=== PATIENT | female | born 1995 | race Two or more races ===

== ENCOUNTER 2025-07-20 02:42 | Emergency (ER) | payer OTHER ==
[~2025-07-20] VITALS: Ht 162.6 cm; Wt 52.2 kg
[2025-07-20 03:38] LABS: PREGNANCY TEST URINE QUAL NEGATIVE (NEGATIVE)
[2025-07-20] MEDS ORDERED: IBUP-1490 PO (04:19)
[2025-07-20] MEDS ORDERED: ACET-73 PO (04:19)
[2025-07-20 04:27] VITALS: BP 124/93; TEMP 97.1; O2SAT 100
== END 2025-07-20 04:54 | disposition home or self-care (01) ==
LOC: ER 02:43
DX: M25.511 Pain in right shoulder (principal); J45.909 Unspecified asthma, uncomplicated; Z88.0 Allergy status to penicillin
CPT/HCPCS: 73030-TC; 84703-TC